=== PATIENT | male | born 1995 | race Asian ===

== ENCOUNTER 2016-12-15 11:39 | Emergency (ER) | payer SELFPAY ==
[~2016-12-15] VITALS: Ht 157.5 cm; Wt 68.0 kg
[2016-12-15 13:02] VITALS: BP 128/71
--- NOTE | 2016-12-15 13:46 | RAD ---
Exam performed: 4 views right knee. Clinical indication: Right knee pain status post lifting injury yesterday. Knee popped yesterday while walking Date of Service: 12/15/16 Comparison:None available Findings: AP, oblique and lateral radiographs of the knee reveal the osseous structures to be intact and well aligned. The joint space is well-preserved. The articular margins are smooth. Evidence of calcific loose body or joint effusion is absent. Impression: Radiographically normal knee.
[2016-12-15] MEDS ORDERED: NAPR500T8 PO (14:12)
--- NOTE | 2016-12-15 14:13 | PHYS DOC ---
Past Medical History Past Medical History: No Pertinent History Past Surgical History: No Surgical History Alcohol Use: None Drug Use: None Adult General Chief Complaint Chief Complaint: KNEE INJURY HPI HPI Patient is a 21 year old male who presents with mild right posterior knee pain that began yesterday while playing soccer. Patient states he believes he twisted his right knee. Review of Systems Review of Systems Constitutional: Denies fever or chills [] Musculoskeletal: Right knee pain Integument: Denies rash or skin lesions [] Neurologic: Denies headache, focal weakness or sensory changes [] Allergies Allergies Allergies Coded Allergies Type Severity Reaction Last Updated Verified No Known Drug Allergies 03/27/15 No Physical Exam Physical Exam Constitutional: Well developed, well nourished, no acute distress, non-toxic appearance. [] Skin: Warm, dry, no erythema, no rash. [] Back: No tenderness, no CVA tenderness. [] Extremities: Right knee with no deformity. Tenderness noted on the posterior aspect of the knee. Full range of motion to the right knee including negative Radha sign and negative Felix's sign negative anterior-posterior drawer sign to patient holding his right lower extremity straight out with no difficulties. +2 right pedal pulse refill less than 2 seconds the right toes. Neurologic: Alert and oriented X 3, normal motor function, normal sensory function, no focal deficits noted. [] Psychologic: Affect normal, judgement normal, mood normal. [] Current Patient Data Vital Signs Vital Signs Date Time Temp Pulse Resp B/P (MAP) Pulse Ox O2 Delivery O2 Flow Rate FiO2 12/15/16 13:02 98.0 69 14 98 Room Air 98.0 EKG EKG [] Radiology/Procedures Radiology/Procedures [] Course & Med Decision Making Course & Med Decision Making Pertinent Labs and Imaging studies reviewed. (See chart for details) Patient is in the ED with right knee pain that began yesterday after he twisted it during soccer. Right knee x-rays interpreted by radiologist are negative for any acute findings. Patient likely has right knee sprain. William wrap applied to the right knee by the RN, neurovascular exam is normal, ice elevation encouraged. Naproxen for pain. Follow-up with open one week. Dragon Disclaimer Dragon Disclaimer This electronic medical record was generated, in whole or in part, using a voice recognition dictation system. Departure Departure Impression: Primary Impression: Right knee sprain Disposition: HOME, SELF-CARE Condition: STABLE Referrals: NO PCP (PCP) SHARON HAND MD follow up in one week Patient Instructions: Knee Sprain, [id number] Additional Instructions: You were seen for right knee sprain. Ice and elevate the extremity. Follow-up with orthopedic doctor in one week if pain continues. Take the prescribed medicine as needed. Keep the William wrap on the right knee as tolerated. Scripts Naproxen (NAPROXEN) 500 Mg Tablet.dr 1 TAB PO BID, #60 TAB 1 Refill Prov: CHA MA SHANK TURNER 12/15/16 Problem Qualifiers Primary Impression: Right knee sprain Encounter type: initial encounter Involved ligament of knee: unspecified ligament Qualified Codes: S83.91XA - Sprain of unspecified site of right knee , initial encounter CHA MA SHANK TURNER Dec 15, 2016 14:13
== END 2016-12-15 14:21 | disposition home or self-care (01) ==
LOC: ER 11:39
DX: S83.91XA Sprain of unspecified site of right knee, initial encounter (principal); X58.XXXA Exposure to other specified factors, initial encounter; Y93.66 Activity, soccer; Y92.89 Other specified places as the place of occurrence of the external cause; Y99.8 Other external cause status
CPT/HCPCS: 73564; 99284

== ENCOUNTER 2017-07-14 20:26 | Emergency (ER) | payer OTHER | END 2017-07-14 21:20 | disposition home or self-care (01) | LOC: ER 20:26 | DX: M25.561 Pain in right knee (principal); X50.9XXA Other and unspecified overexertion or strenuous movements or postures, initial encounter; Y93.39 Activity, other involving climbing, rappelling and jumping off; Y99.8 Other external cause status; Y92.89 Other specified places as the place of occurrence of the external cause | CPT/HCPCS: 29505; 73562; 99284-25 ==

== ENCOUNTER → 2017-07-30 | Outpatient (CLI) | payer OTHER | END | disposition home or self-care (01) | LOC: KCIC MRI 12:46 | DX: S83.511A Sprain of anterior cruciate ligament of right knee, initial encounter (principal); S83.241A Other tear of medial meniscus, current injury, right knee, initial encounter; S83.281A Other tear of lateral meniscus, current injury, right knee, initial encounter; X58.XXXA Exposure to other specified factors, initial encounter; Y93.89 Activity, other specified; Y92.89 Other specified places as the place of occurrence of the external cause; Y99.8 Other external cause status | CPT/HCPCS: 73721 ==

== ENCOUNTER 2017-08-17 06:07 | Day surgery (SDC) | payer OTHER ==
[2017-08-17] MEDS ORDERED: LIDOCAINE 2% PF Vial for OR 5 ML VIAL. (06:12)
[2017-08-17] MEDS ORDERED: ONDANSETRON PF 4 MG/2 ML VIAL. (06:12)
[2017-08-17] MEDS ORDERED: PROPOFOL 20 ML IV (06:12)
[2017-08-17] MEDS ORDERED: DEXAMETHASONE SOD PHOS 20 MG/5 ML VIAL. (06:12)
[2017-08-17] MEDS ORDERED: fentaNYL PF VIAL 100 MCG/2 ML VIAL ×5 (06:12→10:28)
[2017-08-17] MEDS: IV RINGERS,LACTATED 1000ML 1,000 ML IV (06:36)
[2017-08-17] MEDS ORDERED: fentaNYL PF VIAL 100 MCG/2 ML VIAL IV (07:00)
[2017-08-17] MEDS ORDERED: LIDOCAINE 1% PF 2 ML VIAL. ID (07:00)
[2017-08-17] MEDS ORDERED: ONDANSETRON PF 4 MG/2 ML VIAL. IV (07:00)
[2017-08-17] MEDS ORDERED: MIDAZOLAM HCL/PF 2 MG/2 ML VIAL. (07:17)
[2017-08-17] MEDS: EPINEPHrine VIAL 30 MG/30 ML VIAL (08:02)
[2017-08-17] MEDS: BUPIVACAINE-EPI 0.25%-1:200000 50 ML VIAL. (08:02)
[2017-08-17] MEDS ORDERED: SEVOFLURANE 61 TO 120 MINUTES. IH (08:30)
[2017-08-17] MEDS ORDERED: ESMOLOL 100 MG/10 ML VIAL. IV (08:47)
[2017-08-17] MEDS: fentaNYL PF VIAL 100 MCG/2 ML VIAL IV ×4 (10:24→11:00)
[2017-08-17] MEDS ORDERED: MORPHINE SULFATE 4 MG/ML DISP.SYRIN. (10:28)
[2017-08-17] MEDS: MORPHINE SULFATE 4 MG/ML DISP.SYRIN. IV ×4 (10:34→11:25)
[2017-08-17] MEDS: KETOROLAC 30 MG/ML INJ. IV (11:23)
[2017-08-17] MEDS ORDERED: HYDROmorphone 2 MG/ML VIAL (11:44)
[2017-08-17] MEDS: oxyCODONE/APAP 7.5/325 1 TAB TABLET PO (11:49)
[2017-08-17] MEDS: HYDROmorphone 2 MG/ML VIAL IV ×3 (11:50→12:28)
[2017-08-17] MEDS ORDERED: PROCHLORPERAZINE 10 MG/2 ML VIAL. (13:21)
[2017-08-17] MEDS: PROCHLORPERAZINE 10 MG/2 ML VIAL. IV ×2 (13:25→13:45)
== END 2017-08-17 14:11 | disposition home or self-care (01) ==
LOC: SURG 06:07
DX: S83.511A Sprain of anterior cruciate ligament of right knee, initial encounter (principal); S83.211A Bucket-handle tear of medial meniscus, current injury, right knee, initial encounter; S83.281A Other tear of lateral meniscus, current injury, right knee, initial encounter; X50.1XXA Overexertion from prolonged static or awkward postures, initial encounter; Y93.89 Activity, other specified; Y92.89 Other specified places as the place of occurrence of the external cause; Y99.8 Other external cause status; Z87.891 Personal history of nicotine dependence; Z82.49 Family history of ischemic heart disease and other diseases of the circulatory system; Z83.3 Family history of diabetes mellitus; Z79.899 Other long term (current) drug therapy; Z72.89 Other problems related to lifestyle
CPT/HCPCS: 29881; 97116-GP; A7015; C1713; C1762; J0171; J0690; J0780; J1100; J1170; J1885; J2250; J2270; J2405; J2704; J3010; J3490; J7120